=== PATIENT | female | born 2000 | race Caucasian/White ===

== ENCOUNTER 2022-04-03 07:49 | Outpatient (CLI) | payer BC, SELFPAY ==
[2022-04-03 11:03] LABS: Cholesterol* 218 mg/dL (90-199); Triglycerides* 137 mg/dL (40-149)
[2022-04-03 11:04] LABS: HDL Cholesterol* 52 mg/dL (>=50); LDL Cholesterol Calculated 139 mg/dL (<100)
[2022-04-03 12:02] LABS: Chlamydia DNA Amplified* NOT DETECTED (No Detected); GC DNA Amplified* NOT DETECTED (No Detected)
== END 2022-04-03 07:50 | disposition home or self-care (01) ==
PROVIDERS: PCP Family Medicine; Visit Provider Family Medicine
DX: Z01.419 Encounter for gynecological examination (general) (routine) without abnormal findings (principal); Z12.4 Encounter for screening for malignant neoplasm of cervix; Z11.3 Encounter for screening for infections with a predominantly sexual mode of transmission; Z13.6 Encounter for screening for cardiovascular disorders
CPT/HCPCS: 80061; 87491; 87591; 88174

== ENCOUNTER 2023-04-01 07:56 | Outpatient (CLI) | payer BC, SELFPAY ==
--- OUTSIDE RECORDS SUMMARY | 2023-04-03 11:40 | XMS_ITS | Continuity of Care Document ---
Author Name Unknown Organization [facility] Address [address] [place] [address] Phone Care Team Providers Care Posting Clerk Name Role Phone Erika Johnson Unavailable Unavailable Allergies, Adverse Reactions, Alerts Substance Reaction Status Criticality No Known Allergies Active No Inform ation Medications Medication Instructions Dosage Effective Dates (start - stop) Status Comments No Drug Therapy Prescribed Procedures Procedure Date Office/Outpatient Visit,Est, Mod 2017 X Ray Exam Entire Spine 2/3 VW 18 Office/Outpatient Visit,Est, Mod 2014 X-Ray Exam Of Total Spine Office/Outpatient Visit,New, Mod 2014 X-Ray Exam Of Total Spine Advance Directives Directive Yes / No Effective Date File Name No Information Encounters Encounter Description Practice Location Reason(s) For Visit Diagnoses Date Provider Providers Copied on Encounter Office/Outpat ient Visit,Est, Mod [facility], [address], [place], [place], [id number], [place] tel:[phone] [facility] Adolescent idiopathic scoliosis, lumbar regionAdolescent idiopathic scoliosis, thoracic region 8 Pam James. [facility], [address], [place], [address], [place]. tel:[phone] Referring Provider: Edmundo Moya Pediatric [address] [facility] [address], [place], [place], [facility]. tel:[phone] Office/Outpat ient Visit,Est, Mod [facility], [address], [place], [place], [id number], tel:[phone] [facility] Adolescent idiopathic scoliosis, lumbar regionAdolescent idiopathic scoliosis, thoracic region 5 [facility] [place], [address] [place] [address], [address], [place], [place], [id number] , . tel:[phone] Referring Provider: Contreras Moyajin Pediatric [facility] [address] [facility] [address], [place], [place], [facility]. tel:[phone] Office/Outpat ient Visit,New, Mod [facility], [address], [place], [place], [id number], tel:[phone] [facility] Congenital musculoskeletal deformities of spineAcquired scoliosis 5 [facility] [place], [address] [place] [address], [address], [place], [place], [id number] , . tel:[phone] Referring Provider: Edmundo Moya Pediatric [facility] [address] [facility] [address], [place], [address]. tel:[phone] Family History Family Member Type Diagnosis Age At Onset Problem (finding) Payers Payer name Insurance type Covered green party ID [place] imanisonam([place] [id number] [facility] [id number] Social History Type Description Quantity Date Captured Comments Alcohol Use Details Unknown Caffeine Use Details Unknown Tobacco Use Status No Information Smoking Status No Information Sex Female Vital Signs Date / Time: Height Weight BMI Pulse Rate Blood Pressure Temperature Respiratory Rate Body Surface Area Head Circumference Head Circ. Percentile Wt./Michael. Percentile BMI percentile Pulse Ox Inhaled Ox 1:36 PM 65.00 in 59.511 kg (131.20 lbs) 21.8 3 kg/m eter (2) 62 Chief Complaint And Reason For Visit No Information Reason For Referral Reason For Referral No Information Plan Of Treatment Date Type Action Status Future Order: Radiology Order PA /Lateral Full Spine (PALatFS), Ordered on: Ordered Future Order: Radiology Order PA /Lateral Full Spine (PALatFS), Ordered on: Ordered History Of Present Illness Encounter Date Complaint History Of Prese nt Illness No Information Functional Status Date Functional Assessmen t No Information Medications Administered Medication Instructions Dosage Effective Dates (start - stop) Status Comments No Drug Therapy Prescribed Instructions Date Instruction Additional Infor mation No Information Assessments Type Assessment Date assessment Adolescent idiopathic scoliosis, lumbar region assessment Adolescent idiopathic scoliosis, thoracic region Patient Care Teams Name Effective Dates (start - stop) Status Members No Information
== END 2023-04-01 07:57 | disposition home or self-care (01) ==
PROVIDERS: PCP Family Medicine; Referring Provider Family Medicine; Visit Provider Family Medicine
DX: Z00.00 Encounter for general adult medical examination without abnormal findings (principal); E78.5 Hyperlipidemia, unspecified; Z13.9 Encounter for screening, unspecified; Z11.3 Encounter for screening for infections with a predominantly sexual mode of transmission
CPT/HCPCS: 80053; 80061

== ENCOUNTER 2023-04-04 12:39 | Outpatient (CLI) | payer BC, SELFPAY ==
--- OUTSIDE RECORDS SUMMARY | 2023-04-04 12:48 | XMS_ITS | Continuity of Care Document ---
Author Name Unknown Organization [facility] Address [address] [place] [address] Phone Care Team Providers Care Pool Nurse Name Role Phone Erika Johnson Unavailable Unavailable [...] Visit,Est, Mod [facility], [address], [place], [place], [id number], [place] tel:[phone] [facility] Adolescent idiopathic scoliosis, lumbar regionAdolescent idiopathic scoliosis, thoracic region 8 Pma James. [facility], [address], [place], [address], [place]. tel:[phone] Referring Provider: Edmundo Moya Pediatric [address] [facility] [address], [place], [place], [facility]. tel:[phone] Office/Outpat ient Visit,Est, Mod [facility], [address], [place], [place], [id number], tel:[phone] [facility] Adolescent idiopathic scoliosis, lumbar regionAdolescent idiopathic scoliosis, thoracic region 5 [facility] [place], [address] [place] [address], [address], [place], [place], [address] , . tel:[phone] Referring Provider: Contreras Moyajin Pediatric [facility] [address] [facility] [address], [place], [place], [facility]. tel:[phone] Office/Outpat ient Visit,New, Mod [facility], [address], [place], [place], [id number], tel:[phone] [facility] Congenital musculoskeletal deformities of spineAcquired scoliosis 5 [facility] [place], [address] [place] [address], [address], [place], [place], [id number] , . tel:[phone] Referring Provider: Edmundo Moya Pediatric [facility] [address] [facility] [address], [place], [address]. tel:[phone] Family History Family Member Type Diagnosis Age At Onset Problem (finding) Payers Payer name Insurance type Covered libertarian ID U[place]en imanisonam(s) BS [id number] [facility] [id number] Social History Type Description Quantity Date Captured [...]
== END 2023-04-04 12:40 | disposition home or self-care (01) ==
LOC: NFLDREF 12:40
PROVIDERS: PCP Family Medicine; Visit Provider Family Medicine
DX: Z00.00 Encounter for general adult medical examination without abnormal findings (principal); Z11.3 Encounter for screening for infections with a predominantly sexual mode of transmission
CPT/HCPCS: 87491; 87591

== ENCOUNTER 2024-03-30 08:03 | Outpatient (CLI) | payer BC, SELFPAY ==
--- OUTSIDE RECORDS SUMMARY | 2024-04-01 17:06 | XMS_ITS | Continuity of Care Document ---
Author Organization [facility] Address [address] [place] [address] Phone Care Team Providers Care Warp Dyeing Tender Name Role Phone Erika Ahumada Unavailable Unavailable Allergies, Adverse Reactions, Alerts Substance [...] Visit,Est, Mod [facility], [address], [place], [place], [id number], [place] tel:[phone] [facility] Adolescent idiopathic scoliosis, lumbar regionAdolescent idiopathic scoliosis, thoracic region 8 Tim James. [facility], [address], [place], [address], [place]. tel:[phone] Referring Provider: Edmundo Moya Pediatric [address] [facility] [address], [place], [address]. tel:[phone] Office/Outpat ient Visit,Est, Mod [facility], [address], [place], [place], [id number], tel:[phone] [facility] Linda Adolescent idiopathic scoliosis, lumbar regionAdolescent idiopathic scoliosis, thoracic region 5 [facility] [place], [address] [place] [address], [address], [place], [place], [id number] , . tel:[phone] Referring Provider: Edmundo Moya [facility] [address] [facility] [address], [place], [place], [facility]. tel:[phone] Office/Outpat ient Visit,New, Mod [facility], [address], [place], [place], [id number], tel:[phone] [facility] Congenital musculoskeletal deformities of spineAcquired scoliosis 5 [facility] [place], [address] [place] [address], [address], [place], [place], [id number] , . tel:[phone] Referring Provider: Edmundo Moya Pediatric [address] [facility] [address], [place], [place], [facility]. tel:[phone] Family History Family Member Type Diagnosis Age At Onset Problem (finding) Payers Payer name Insurance type Covered democrat ID Uyen ken(s) [facility] [id number] [facility] [id number] Social History Type Description Quantity Date Captured [...]
== END 2024-03-30 08:04 | disposition home or self-care (01) ==
LOC: NFLDREF 04-01 17:05
PROVIDERS: PCP Family Medicine; Referring Provider Family Medicine; Visit Provider Family Medicine
DX: E78.5 Hyperlipidemia, unspecified (principal); R53.83 Other fatigue; Z13.1 Encounter for screening for diabetes mellitus; Z13.9 Encounter for screening, unspecified; Z11.3 Encounter for screening for infections with a predominantly sexual mode of transmission
CPT/HCPCS: 80061; 82947; 84443; 87491; 87591

== ENCOUNTER 2025-04-12 07:35 | Outpatient (CLI) | payer BC, SELFPAY | END 2025-04-12 07:36 | disposition home or self-care (01) | LOC: NFLDREF 04-13 06:15 | PROVIDERS: PCP Family Medicine; Referring Provider Family Medicine; Visit Provider Family Medicine | DX: E78.5 Hyperlipidemia, unspecified (principal); Z13.9 Encounter for screening, unspecified | CPT/HCPCS: 80061; 82947 ==

== ENCOUNTER 2025-04-13 09:50 | Outpatient (CLI) | payer BC, SELFPAY | END 2025-04-13 09:51 | disposition home or self-care (01) | PROVIDERS: PCP Family Medicine; Visit Provider Family Medicine | DX: Z13.1 Encounter for screening for diabetes mellitus (principal); E78.5 Hyperlipidemia, unspecified | CPT/HCPCS: 87491; 87591 ==